=== PATIENT | male | born 1955 | race Hispanic/Latino ===

== ENCOUNTER 2023-07-31 19:19 | Emergency (ER) | payer OTHER, MEDICARE ==
[~2023-07-31] VITALS: Ht 177.8 cm; Wt 123.4 kg
[2023-07-31 23:12] VITALS: BP 156/69; PULSE 84; RESP 20; O2SAT 97
== END 2023-08-01 00:09 | disposition home or self-care (01) ==
LOC: EDH 19:19
DX: S46.912A Strain of unspecified muscle, fascia and tendon at shoulder and upper arm level, left arm, initial encounter (principal); S76.012A Strain of muscle, fascia and tendon of left hip, initial encounter; E11.9 Type 2 diabetes mellitus without complications; E78.00 Pure hypercholesterolemia, unspecified; I10 Essential (primary) hypertension; Z88.5 Allergy status to narcotic agent; Z88.8 Allergy status to other drugs, medicaments and biological substances; W01.0XXA Fall on same level from slipping, tripping and stumbling without subsequent striking against object, initial encounter; Y93.89 Activity, other specified; Y92.89 Other specified places as the place of occurrence of the external cause; Y99.8 Other external cause status
CPT/HCPCS: 70450; 71045; 72125; 73030; 73503

== ENCOUNTER 2023-08-27 19:07 | Emergency (ER) | payer OTHER, MEDICARE ==
[~2023-08-27] VITALS: Ht 177.8 cm; Wt 122.9 kg
[2023-08-27 20:18] VITALS: BP 158/96; PULSE 72; RESP 18
[2023-08-27] MEDS ORDERED: KETOROLAC 60 MG VIAL (30MG/ML) IM ONE (22:00)
[2023-08-27] MEDS ORDERED: CYCL5TAB PO (23:15)
[2023-08-27] MEDS ORDERED: LIDO1ADH71 TP (23:15)
[2023-08-27] MEDS ORDERED: ACET-66 PO (23:15)
[2023-08-27] MEDS ORDERED: NAPR-1023 PO (23:15)
== END 2023-08-27 23:25 | disposition home or self-care (01) ==
LOC: EDH 19:07
DX: S43.402A Unspecified sprain of left shoulder joint, initial encounter (principal); S40.012A Contusion of left shoulder, initial encounter; S20.212A Contusion of left front wall of thorax, initial encounter; S70.02XA Contusion of left hip, initial encounter; E11.9 Type 2 diabetes mellitus without complications; I10 Essential (primary) hypertension; Z88.5 Allergy status to narcotic agent; Z88.8 Allergy status to other drugs, medicaments and biological substances; Z91.041 Radiographic dye allergy status; W18.39XA Other fall on same level, initial encounter; Y93.89 Activity, other specified; Y92.89 Other specified places as the place of occurrence of the external cause; Y99.8 Other external cause status
CPT/HCPCS: 99284; 73502; 73552; 73030; 71101; 96372; J1885

== ENCOUNTER 2024-04-17 18:12 | Observation (INO) | payer OTHER, MEDICARE ==
[~2024-04-17] VITALS: Ht 177.8 cm; Wt 118.8 kg
[~2024-04-17 18:12] MED LIST: ACET-66 PO; CYCL5TAB PO; LIDO1ADH71 TP; NAPR-1023 PO
[2024-04-17] MEDS: ASPIRIN 325MG TAB PO ONE (18:29)
[2024-04-17 18:35] LABS: BASOPHILS # (AUTO) 0.04 K/uL (0.00-0.20); BASOPHILS % (AUTO) 0.4 % (0.0-5.0); EOSINOPHILS # (AUTO) 0.16 K/uL (0.00-0.70); EOSINOPHILS % (AUTO) 1.6 % (0.0-8.0); HEMATOCRIT 41.7 % (42-54); IMMATURE GRANULOCYTE ABSOLUTE 0.06 K/uL (0-1); LYMPHOCYTES # (AUTO) 2.8 K/uL (1.0-4.8); LYMPHOCYTES % (AUTO) 28.6 % (21.0-51.0); MEAN CORPUSCULAR HGB CONC 33.6 g/dL (32.0-36.0); MEAN CORPUSCULAR VOLUME 77.5 fL (79-99); MONOCYTES # (AUTO) 0.8 K/uL (0.1-1.0); NEUTROPHILS % (AUTO) 60.8 % (40.0-77.0); PLATELET COUNT (AUTO) 275 K/uL (130-400); RED BLOOD CELL COUNT(AUTO) 5.38 MIL/uL (4.50-6.20); RED CELL DISTRIBUTION WIDTH 14.3 % (11.0-15.5); WHITE BLOOD COUNT (AUTO) 9.9 K/uL (4.8-10.8)
[2024-04-17 18:44] LABS: INR 0.95 (0.85-1.15); POTASSIUM 3.7 mmol/L (3.5-5.1); PROTHROMBIN TIME 10.3 SEC (9.6-11.6)
[2024-04-17 18:52] LABS: ALBUMIN 3.4 g/dL (3.5-5.0); BILIRUBIN,TOTAL 0.4 mg/dL (0.2-1.0); TOTAL PROTEIN, SERUM 6.7 g/dL (6.0-8.3)
[2024-04-17 19:00] LABS: B-TYPE NATRIURETIC PEPTIDE 44 pg/mL (0-100)
[2024-04-17] MEDS: ENOXAPARIN SODIUM 120 MG/0.8ML SQ SCH (21:20)
[2024-04-17] MEDS ORDERED: POTASSIUM CHLORIDE 10% ELIXIR 20 MEQ/15 ML UDCUP PO PRN (22:30)
[2024-04-17] MEDS ORDERED: DEXTROSE 50%-WATER 50 ML DISP.SYRIN IV PRN (22:30)
[2024-04-17] MEDS ORDERED: KCL 20 MEQ ERTAB PO PRN (22:30)
[2024-04-17] MEDS ORDERED: MAG/ALUM/SIMETH 30 ML UDCUP PO PRN (22:30)
[2024-04-17] MEDS ORDERED: NITROGLYCERIN 0.4 MG SL TAB SL PRN (22:30)
[2024-04-17] MEDS ORDERED: LACTULOSE 20 GM/30 ML UDCUP PO PRN (22:30)
[2024-04-17] MEDS ORDERED: HYDRALAZINE 20MG/ML VIAL IV PRN (22:30)
[2024-04-17] MEDS ORDERED: GLUCAGON 1MG KIT 1 MG ML IM PRN (22:30)
[2024-04-17] MEDS ORDERED: DiphenhydrAMINE HCL 50 MG/ML VIAL IV PRN (22:30)
[2024-04-17] MEDS ORDERED: GUAIFENESIN-DM 200/20 MG 10 ML PO PRN (22:30)
[2024-04-17] MEDS ORDERED: ONDANSETRON 4MG INJ IV PRN (22:30)
[2024-04-17] MEDS ORDERED: ACETAMINOPHEN 325 MG TAB PO PRN ×3 (22:30)
[2024-04-17] MEDS ORDERED: POTASSIUM CHLORIDE 10MEQ/100ML 100 ML IV PRN (22:30)
[2024-04-17] MEDS ORDERED: MAGNESIUM 2GM PREMIX 50ML 50 ML IV PRN (22:30)
[2024-04-17] MEDS ORDERED: KETOROLAC 15MG/ML VIAL (15MG/ML) IV PRN (22:30)
[2024-04-17] MEDS ORDERED: ZOLPIDEM TARTRATE 5 MG TAB PO PRN (22:30)
[2024-04-17 23:58] VITALS: O2SAT 98
[2024-04-18] VITALS: BP 159/86; PULSE 57; RESP 19
[2024-04-18 04:00] VITALS: BP 142/81; PULSE 61; RESP 20
[2024-04-18 05:49] LABS: BASOPHILS # (AUTO) 0.04 K/uL (0.00-0.20); BASOPHILS % (AUTO) 0.4 % (0.0-5.0); EOSINOPHILS # (AUTO) 0.19 K/uL (0.00-0.70); HEMATOCRIT 42.7 % (42-54); IMMATURE GRANULOCYTE ABSOLUTE 0.04 K/uL (0-1); LYMPHOCYTES # (AUTO) 2.8 K/uL (1.0-4.8); LYMPHOCYTES % (AUTO) 29.6 % (21.0-51.0); MEAN CORPUSCULAR HEMOGLOBIN 25.6 pg (27.0-33.0); MEAN CORPUSCULAR HGB CONC 32.3 g/dL (32.0-36.0); MEAN CORPUSCULAR VOLUME 79.2 fL (79-99); MONOCYTES # (AUTO) 0.9 K/uL (0.1-1.0); MONOCYTES % (AUTO) 9.6 % (3.0-13.0); NEUTROPHILS # (AUTO) 5.4 K/uL (1.8-7.7); PLATELET COUNT (AUTO) 252 K/uL (130-400); RED BLOOD CELL COUNT(AUTO) 5.39 MIL/uL (4.50-6.20); RED CELL DISTRIBUTION WIDTH 14.2 % (11.0-15.5); WHITE BLOOD COUNT (AUTO) 9.3 K/uL (4.8-10.8)
[2024-04-18 06:12] LABS: HEMOGLOBIN A1C 9.1 % (4.0-6.0)
[2024-04-18 06:16] LABS: ALBUMIN 3.2 g/dL (3.5-5.0); BILIRUBIN,DIRECT 0.1 mg/dL (0.0-0.3); BILIRUBIN,TOTAL 0.6 mg/dL (0.2-1.0); CREATININE 0.7 mg/dL (0.5-1.3); MAGNESIUM 1.9 mg/dL (1.80-2.40); POTASSIUM 4.1 mmol/L (3.5-5.1); TOTAL PROTEIN, SERUM 6.3 g/dL (6.0-8.3)
[2024-04-18] MEDS: INSULIN HUMULIN R 100 UNIT/ML 3ML SQ SCH (07:28)
[2024-04-18 08:00] VITALS: BP 140/88; PULSE 65; RESP 18; O2SAT 97
[2024-04-18 08:25] LABS: THYROID STIMULATING HORMONE 1.37 uIU/mL (0.36-3.74)
[2024-04-18] MEDS: ASPIRIN 81 MG EC TAB PO SCH (09:05)
[2024-04-18] MEDS: FAMOTIDINE 20MG VIAL IV SCH (09:05)
[2024-04-18] MEDS: HEPARIN 5,000 UNIT VIAL SQ SCH (09:17)
[2024-04-18] MEDS ORDERED: EMPA10TA PO (09:28)
[2024-04-18] MEDS ORDERED: ACET325T51 PO (09:28)
[2024-04-18] MEDS ORDERED: RAMI10CA76 PO (09:28)
[2024-04-18] MEDS ORDERED: ATOR40TA69 PO (09:28)
[2024-04-18] MEDS ORDERED: DULA1.5P SQ (09:28)
[2024-04-18] MEDS ORDERED: PENI500T2 PO (09:28)
[2024-04-18] MEDS ORDERED: ATORVASTATIN 20 MG TABLET PO SCH (21:00)
== END 2024-04-18 11:00 | disposition home or self-care (01) ==
LOC: EDH 18:12 → EDHIP 22:05 → 3BH 23:52
PROVIDERS: ADMIT Internal Medicine; ATTEND Internal Medicine
DX: R07.89 Other chest pain (principal); I10 Essential (primary) hypertension; E11.649 Type 2 diabetes mellitus with hypoglycemia without coma; E78.2 Mixed hyperlipidemia; E86.0 Dehydration; I24.9 Acute ischemic heart disease, unspecified; E87.6 Hypokalemia; I25.10 Atherosclerotic heart disease of native coronary artery without angina pectoris; I25.2 Old myocardial infarction; E44.1 Mild protein-calorie malnutrition; E66.01 Morbid (severe) obesity due to excess calories; F41.9 Anxiety disorder, unspecified; R53.1 Weakness; R11.0 Nausea; G47.33 Obstructive sleep apnea (adult) (pediatric); Z87.891 Personal history of nicotine dependence; Z95.1 Presence of aortocoronary bypass graft; Z79.899 Other long term (current) drug therapy; Z98.890 Other specified postprocedural states; Z68.37 Body mass index [BMI] 37.0-37.9, adult
CPT/HCPCS: 96372 ×2; 99285; 84484 ×3; 80053; 83880 ×2; 85025 ×2; 85610; 36415 ×2; 71045; 93005 ×2; 96374; 83036; 84443; 82550; 80076; 83735; 80061; 80048; 82140; 83605; 84145; G0378 ×13; J1650; J3490; J1644